=== PATIENT | female | born 1945 | race African-American/Black ===

== ENCOUNTER → 2018-05-20 | Outpatient (CLI) | payer BC ==
[2015-08-19 10:00] VITALS: BP 148/85
[~2018-05-20] MED LIST: AMLO5TAB7 PO; ESOM20CA PO; FLUT100D IH; FLUT1DIS IH; LORA1TAB PO; METO-239 PO; ONAB100V IJ; PANT40TA5 PO
--- NOTE | 2018-05-20 14:10 | RAD ---
EXAM: Chest, 2 views. HISTORY: Shortness of breath. COMPARISON: 10/15/2015 FINDINGS: 2 views of the chest are obtained. There is no infiltrate, pleural effusion or pneumothorax. The heart is normal in size. There is a tortuous thoracic aorta. There is hyperinflation due to inspiratory effort or emphysema. IMPRESSION: No acute pulmonary finding. Electronically signed by: Blanca Crane MD (05/20/2018 2:06 PM) [place] [id number]
== END | disposition home or self-care (01) ==
LOC: RAD 11:54
PROVIDERS: ATTEND Internal Medicine Pulmonary Disease
DX: R06.02 Shortness of breath (principal)
CPT/HCPCS: 71046

== ENCOUNTER → 2018-06-29 | Day surgery (SDC) | payer BC ==
[~2018-06-29] MED LIST changes: +AMLO5TAB10 PO; -AMLO5TAB7 PO; +HYDROmorphone 2 MG/ML VIAL IV PRN; +IV RINGERS,LACTATED 1000ML 1,000 ML IV SCH; +LIDOCAINE 1% PF 2 ML VIAL. ID PRN; +MORPHINE SULFATE 4 MG/ML VIAL. IV PRN; +ONDANSETRON PF 4 MG/2 ML VIAL. IV PRN; +PROCHLORPERAZINE 10 MG/2 ML VIAL. IV PRN; +PROPOFOL 40 ML IV ONE; +fentaNYL PF VIAL 100 MCG/2 ML VIAL IV PRN
[2018-06-29 10:06] VITALS: BP 110/70
--- NOTE | 2018-06-30 17:07 | PATHOLOGY ---
[facility] Accession Number: [id number] . 01 Material submitted: . PART A: DISTAL ESOPHAGUS BIOPSY PART B: TRANSVERSE COLON POLYP . 01 Clinical history: . Rowland's, Hx of polyp . 02 Diagnosis: A. Esophageal biopsies, distal esophagus: - Segments of hyperplastic squamous esophageal mucosa showing intraepithelial neutrophils and presence of yeast and pseudohyphae consistent with Ellen esophagitis. . B. Colon biopsy, transverse colon polyp: - Tubular adenoma. QTP/06/30/2018 . 02 Comment: Sections of the distal esophageal biopsy reveal segments of focally tangentially oriented hyperplastic squamous esophageal mucosa showing intraepithelial neutrophils. A PAS stain for fungus reveals the presence of yeast and pseudohyphae. 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 There is no evidence of Rowland's change, dysplasia, or malignancy. . Sections of the transverse colon biopsy reveal a tubular adenoma showing no high-grade dysplasia or evidence of malignancy. (JPM:[facility] 06/30/2018) . Special stain performed; PAS stain for fungus on A1. . 02 Electronically signed: . Ran Almonte MD, Pathologist NPI- [id number] . 01 Gross description: . A. Received in formalin labeled "Annette Camille, distal esophagus biopsy," are multiple segments of christopher soft tissue measuring 1.3 x 0.2 x 0.1 cm in aggregate dimensions. The specimen is filtered and entirely submitted in cassette A1. . B. Received in formalin labeled "Annette, Camille, transverse colon polyp," is a single segment of christopher soft tissue measuring 0.4 cm in maximum dimension. The specimen is entirely submitted in cassette B1. (TSD; 06/29/2018) TOB/TOB . 02 Pathologist provided ICD-10: B37.81, D12.3 . 02 CPT . 227215, 937364, 744212 Specimen Comment: A courtesy copy of this report has been sent to Specimen Comment: [phone], . Specimen Comment: Report sent to / DR ANTONY Performed at: 01 [facility] [address] [place] [address] [address], [place] [id number] MD Aleksandr Prieto MD Phone: [phone] Performed at: 02 [facility] [address], [place] [id number] MD Ran Almotne MD Phone: [phone]
== END | disposition home or self-care (01) ==
LOC: ENDOS 07:56
PROVIDERS: ATTEND Internal Medicine Gastroenterology
DX: D12.3 Benign neoplasm of transverse colon (principal); K57.30 Diverticulosis of large intestine without perforation or abscess without bleeding; K64.0 First degree hemorrhoids; K22.70 Barrett's esophagus without dysplasia; K29.50 Unspecified chronic gastritis without bleeding; Z86.010 Personal history of colon polyps; I10 Essential (primary) hypertension; K21.9 Gastro-esophageal reflux disease without esophagitis; Z85.068 Personal history of other malignant neoplasm of small intestine; Z79.899 Other long term (current) drug therapy; Z90.49 Acquired absence of other specified parts of digestive tract; Z90.710 Acquired absence of both cervix and uterus; Z98.890 Other specified postprocedural states
CPT/HCPCS: 43239; 45380; J2704